=== PATIENT | female | born 1960 | race Caucasian/White ===

== ENCOUNTER 2017-08-25 13:02 | Observation (INO) | payer BC ==
[2017-08-25] MEDS ORDERED: Aspirin 81 mg CHEW TAB* 81 MG TAB.CHEW PO ONE (13:42)
[2017-08-25 14:09] LABS: ABS Basophils 0.1 10^3/ul (0-0.2); ABS Eosinophils 0.1 10^3/ul (0-0.6); ABS Lymphocytes 1.6 10^3/ul (1.0-4.8); ABS Monocytes 0.4 10^3/ul (0-0.8); ABS Neutrophils 3.8 10^3/ul (1.5-7.7); ABS Nucleated RBC 0 10^3/ul; Eosinophil % 2.3 % (0-6); Hematocrit 37 % (35-47); Hemoglobin 12.8 g/dl (12.0-16.0); Lymphocyte % 26.4 % (25-47); Mean Corpuscular HGB Conc 35 g/dl (31-36); Mean Corpuscular Hemoglobin 30 pg (27-31); Mean Corpuscular Volume 87 fL (80-97); Mean Platelet Volume 8.6 um3 (7.4-10.4); Nucleated Red Blood Cells % 0; Platelet Count 239 10^3/ul (150-450); Red Blood Count 4.23 10^6/ul (4.0-5.4); Red Cell Distribution Width 13 % (10.5-15); White Blood Count 6.1 10^3/ul (3.5-10.8)
[2017-08-25 14:20] LABS: INR 0.83 (0.77-1.02)
[2017-08-25 14:27] LABS: EGFR Non-African American 81.6 (>60)
--- NOTE | 2017-08-25 14:35 | RAD ---
HISTORY: Chest pain COMPARISONS: September 11, 2013 VIEWS: 1: frontal portable view of the chest at 1:55 PM FINDINGS: LINES AND TUBES: None. CARDIOMEDIASTINAL SILHOUETTE: The cardiomediastinal silhouette is normal for portable technique. PLEURA: The costophrenic angles are sharp. No pleural abnormalities are noted. LUNG PARENCHYMA: The lungs are clear. ABDOMEN: The upper abdomen is clear. There is no subphrenic gas. BONES AND SOFT TISSUES: The patient is status post anterior cervical fusion IMPRESSION: NO ACTIVE CARDIOPULMONARY DISEASE.
[2017-08-25] MEDS ORDERED: Nitroglycerin TAB 0.4 MG* 0.4 MG TAB SL ONE (15:08)
[2017-08-25] MEDS ORDERED: Metoclopramide IV* 5 MG/ML 2 ML VIAL IV ONE (15:08)
[2017-08-25] MEDS ORDERED: NS 0.9% 1000 ML* 1,000 ML IV ONE (15:08)
[2017-08-25] MEDS ORDERED: diPHENhydraMINE IV* 50 MG/ML 1 ml VIAL (BENADRYL) IV ONE (15:08)
[2017-08-25] MEDS: Atorvastatin* 80 MG TAB PO SCH (17:53)
[2017-08-25] MEDS: Metoprolol Tartrate TAB* 25 MG PO SCH (17:53)
--- NOTE | 2017-08-25 18:20 | ED ---
Kole Haynes Jennifer, scribed for Mike Salvador MD on 08/25/17 at 1507 . HPI Chest Pain - HPI Summary HPI Summary: The patient is a 57 year old female who presents with chest pain, dizziness, and nausea since 11:30 this morning. The patient reports her symptoms began with chest pain across her whole chest and under her right arm. She then began to feel numbness in her jaw, neck, and fingertips, but not her fingertips anymore. She additionally complains of headache and belching. The patient denies heart burn, coughing, and heart palpitations. She has a history of vertigo but denies ever having chest pressure with her vertigo in the past. - History of Current Complaint Chief Complaint: EDChestPainROMI Time Seen by Provider: 08/25/17 14:59 Hx Obtained From: Patient Onset/Duration: Started Hours Ago - 3.5 hours, Still Present Timing: Constant Initial Severity: Moderate Current Severity: Moderate Pain Intensity: 8 Pain Scale Used: 0-10 Numeric Chest Pain Location: Diffuse Chest Pain Radiates: Yes Chest Pain Radiates To:: Other - Right armpit Aggravating Factor(s): Nothing Alleviating Factor(s): Nothing Associated Signs and Symptoms: Positive: Other: - chest pain, numbness in jaw, neck and fingertips, dizziness, lightheadedness, nausea, headache, belching. NEGATIVE: heart burn, coughing, heart palpitations - Allergy/Home Medications Allergies/Adverse Reactions: Allergies Allergy/AdvReac Type Severity Reaction Status Date / Time Penicillins Allergy Intermediate Hives Verified 08/25/17 15:14 lactose Allergy Unknown Unknown Verified 08/25/17 15:00 Reaction Details sulfamethoxazole AdvReac Mild Diarrhea Verified 08/25/17 15:14 [From Bactrim] trimethoprim [From Bactrim] AdvReac Mild Diarrhea Verified 08/25/17 15:14 Home Medications: Home Medications Rosuvastatin (NF) [Crestor (NF)] 10 mg PO DAILY 08/25/17 [History Confirmed 07/10] PMH/Surg Hx/FS Hx/Imm Hx Cardiovascular History: Reports: Hx Hypercholesterolemia Denies: Hx Hypertension GI History: Reports: Other GI Disorders - Lactose Intolerance, Nutcracker Esophagus Neurological History: Reports: Other Neuro Impairments/Disorders - Hx Vertigo Infectious Disease History: No Infectious Disease History: Denies: Traveled Outside the [place] in Last 30 Days - Family History Known Family History: Positive: Cardiac Disease - Father - CHF, pacemaker; Mother - pacemaker, Diabetes Negative: Renal Disease - Social History Alcohol Use: None Hx Substance Use: No Substance Use Type: Reports: None Hx Tobacco Use: No Smoking Status (MU): Never Smoked Tobacco Review of Systems Positive: Chest Pain. Negative: Palpitations Negative: Cough Gastrointestinal: Negative - Heart burn Positive: Nausea, Other - Belching Neurological: Other - Dizziness, lightheaded Positive: Headache, Numbness - jaw, neck, fingertips All Other Systems Reviewed And Are Negative: Yes Physical Exam - Summary Physical Exam Summary: Appearance: Well appearing, no pain distress Skin: warm, dry, reflects adequate perfusion Head/face: normal Eyes: EOMI, ROSITA ENT: normal Neck: supple, non-tender Respiratory: CTA, breath sounds present Cardiovascular: RRR, pulses symmetrical Abdomen: non-tender, soft Bowel Sounds: present Musculoskeletal: normal, strength/ROM intact Neuro: Negative Hallpike, normal, sensory motor intact, A&Ox3 Triage Information Reviewed: Yes Vital Signs On Initial Exam: Initial Vitals Temp Pulse Resp BP Pulse Ox 98.1 F 87 14 151/80 99 08/25/17 13:05 08/25/17 13:05 08/25/17 13:05 08/25/17 13:05 08/25/17 13:05 Vital Signs Reviewed: Yes Diagnostics - Vital Signs Vital Signs Temp Pulse Resp BP Pulse Ox 08/25/17 13:05 98.1 F 87 14 151/80 99 - Laboratory Lab Results: Lab Results 08/25/17 08/25/17 08/25/17 Range/Units 13:59 13:59 13:59 WBC 6.1 (3.5-10.8) 10^3/ul RBC 4.23 (4.0-5.4) 10^6/ul Hgb 12.8 (12.0-16.0) g/dl Hct 37 (35-47) % MCV 87 (80-97) fL MCH 30 (27-31) pg MCHC 35 (31-36) g/dl RDW 13 (10.5-15) % Plt Count 239 (150-450) 10^3/ul MPV 8.6 (7.4-10.4) um3 Neut % (Auto) 63.3 (38-83) % Lymph % (Auto) 26.4 (25-47) % [place] % (Auto) 7.1 H (0-7) % Eos % (Auto) 2.3 (0-6) % Baso % (Auto) 0.9 (0-2) % Absolute Neuts (auto) 3.8 (1.5-7.7) 10^3/ul Absolute Lymphs (auto) 1.6 (1.0-4.8) 10^3/ul Absolute Monos (auto) 0.4 (0-0.8) 10^3/ul Absolute Eos (auto) 0.1 (0-0.6) 10^3/ul Absolute Basos (auto) 0.1 (0-0.2) 10^3/ul Absolute Nucleated RBC 0 10^3/ul Nucleated RBC % 0 INR (Anticoag Therapy) 0.83 (0.77-1.02) Sodium 139 (139-145) mmol/L Potassium 3.7 (3.5-5.0) mmol/L Chloride 105 (101-111) mmol/L Carbon Dioxide 26 (22-32) mmol/L Anion Gap 8 (2-11) mmol/L BUN 17 (6-24) mg/dL Creatinine 0.73 (0.51-0.95) mg/dL Est GFR ( Amer) 104.9 (>60) Est GFR (Non-Af Amer) 81.6 (>60) BUN/Creatinine Ratio 23.3 H (8-20) Glucose 102 H (70-100) mg/dL Lactic Acid (0.5-2.0) mmol/L Calcium 9.2 (8.6-10.3) mg/dL Total Bilirubin 0.50 (0.2-1.0) mg/dL AST 20 (13-39) U/L ALT 22 (7-52) U/L Alkaline Phosphatase 76 (34-104) U/L Troponin I 0.00 (<0.04) ng/mL B-Natriuretic Peptide ( - 100) pg/mL Total Protein 6.8 (6.4-8.9) g/dL Albumin 4.1 (3.2-5.2) g/dL Globulin 2.7 (2-4) g/dL Albumin/Globulin Ratio 1.5 (1-3) 08/25/17 08/25/17 Range/Units 13:59 13:59 WBC (3.5-10.8) 10^3/ul RBC (4.0-5.4) 10^6/ul Hgb (12.0-16.0) g/dl Hct (35-47) % MCV (80-97) fL MCH (27-31) pg MCHC (31-36) g/dl RDW (10.5-15) % Plt Count (150-450) 10^3/ul MPV (7.4-10.4) um3 Neut % (Auto) (38-83) % Lymph % (Auto) (25-47) % [place] % (Auto) (0-7) % Eos % (Auto) (0-6) % Baso % (Auto) (0-2) % Absolute Neuts (auto) (1.5-7.7) 10^3/ul Absolute Lymphs (auto) (1.0-4.8) 10^3/ul Absolute Monos (auto) (0-0.8) 10^3/ul Absolute Eos (auto) (0-0.6) 10^3/ul Absolute Basos (auto) (0-0.2) 10^3/ul Absolute Nucleated RBC 10^3/ul Nucleated RBC % INR (Anticoag Therapy) (0.77-1.02) Sodium (139-145) mmol/L Potassium (3.5-5.0) mmol/L Chloride (101-111) mmol/L Carbon Dioxide (22-32) mmol/L Anion Gap (2-11) mmol/L BUN (6-24) mg/dL Creatinine (0.51-0.95) mg/dL Est GFR ( Amer) (>60) Est GFR (Non-Af Amer) (>60) BUN/Creatinine Ratio (8-20) Glucose (70-100) mg/dL Lactic Acid 0.6 (0.5-2.0) mmol/L Calcium (8.6-10.3) mg/dL Total Bilirubin (0.2-1.0) mg/dL AST (13-39) U/L ALT (7-52) U/L Alkaline Phosphatase (34-104) U/L Troponin I (<0.04) ng/mL B-Natriuretic Peptide 10 ( - 100) pg/mL Total Protein (6.4-8.9) g/dL Albumin (3.2-5.2) g/dL Globulin (2-4) g/dL Albumin/Globulin Ratio (1-3) Result Diagrams: 08/25/17 13:59 08/25/17 13:59 Lab Statement: Any lab studies that have been ordered have been reviewed, and results considered in the medical decision making process. - Radiology CXR Xray Interpretation: No Acute Changes - NO ACTIVE CARDIOPULMONARY DISEASE. Dr. Salvador has reviewed this report. Radiology Interpretation Completed By: Radiologist - EKG 1303 Cardiac Rate: NL EKG Rhythm: Sinus Rhythm - 79 BPM Ectopy: PACs EKG Interpretation: Normal axis, normal ST Chest Pain Course/Dx - Course Course Of Treatment: Pain radiating to her neck. Initial EKG, troponin is nondiagnostic. Patient agrees to be admitted for further evaluation, treatment and testing. Heart score is 3. - Chest Pain Differential Diagnosis/HQI/PQRI: Acute RI, ACS, Angina, CHF, Chest Wall, GI Disease, Lower Respiratory Infection, Pulmonary Edema, Pulmonary Embolism - Diagnoses Provider Diagnoses: Chest pain, Acute coronary syndrome, Lightheadedness - Provider Notifications Discussed Care Of Patient With: Nj Jones Time Discussed With Above Provider: 15:17 Instructed by Provider To: Admit As Inpatient Discharge - Sign-Out/Discharge Documenting (check all that apply): Discharge/Admit/Transfer - Discharge Plan Condition: Good Disposition: ADMITTED TO [facility] - Billing Disposition and Condition Condition: GOOD Disposition: [facility] [place] The documentation as recorded by the Kole elena Jennifer accurately reflects the service I personally performed and the decisions made by Modesto govea Kirk, MD.
[2017-08-25] MEDS ORDERED: Meclizine TAB* 12.5 MG PO PRN (20:01)
--- NOTE | 2017-08-25 20:31 | HP ---
HISTORY AND PHYSICAL: DATE OF ADMISSION: 08/25/17 PRIMARY CARE PROVIDER: Yumiko Tompkins MD ADMITTING PROVIDER: Nj Jones MD CHIEF COMPLAINT: Chest pain, nausea, dizziness, numbness, tingling. HISTORY OF PRESENT ILLNESS: Faith Hampton is a 57-year-old female with past medical history of hyperlipidemia, former smoker, Nutcracker esophagus who was in her usual state of health, sitting at work, at 11:40 a.m. on day of admission , when she developed 8/10 pain underneath her left breast radiating through to her right axilla, lasting about 15 minutes. She has a difficult time describing the pain though states it is not burning or stabbing. It then resolved and she developed bilateral numbness and tingling in her fingers and then throughout the rest of her body. She began to feel dizzy, nauseous and developed numbness in her jaw. She has never experienced symptoms like this. These are not comparable to her previous experience with her Nutcracker esophagus spasms for which she gets occasionally dilated with Dr. Langston - the last 2 to 3 years ago. The patient does not exercise. She has a family history of her father had multiple cardiac issues including need for a pacemaker, consists of heart failure. The patient is a former smoker of 12-pack years, quit 20 years ago. She enjoys 1 to 2 beers nightly. She denies any shortness of breath. She has had episodes of dizziness 4 times over the last 6 months usually at around dinnertime, for which goes to sleep and it resolves. She of note also had a 2-1 /2-hour flight the day prior to presentation. Denies any swelling in her legs. A D-dimer was checked in the emergency room and was negative at less than 200. Her initial troponins are 0. Her initial EKG, normal sinus rhythm. No ischemic changes. She is being referred to hospitalist service for ACS rule out. PAST MEDICAL HISTORY: 1. Nutcracker esophagus. 2. Hyperlipidemia. 3. Occasional vertigo. MEDICATIONS: Crestor 10 mg daily. ALLERGIES: PENICILLIN gives hives, BACTRIM gives diarrhea. She has lactose intolerance. FAMILY HISTORY: Father at age 84 ultimately of complications of CHF and diabetes. Mother had hyperlipidemia, hypertension, also pacemaker. 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 She has 12-pack- year smoking history, quit 20 years ago. She drinks 1 to 2 beers daily. REVIEW OF SYSTEMS: Complete 14-point review of systems is negative, except as per HPI. PHYSICAL EXAMINATION GENERAL APPEARANCE: No acute distress, sitting on the hospital bed. VITAL SIGNS: Blood pressure 131/82, temperature 98.7, heart rate 74, respiratory rate 16, satting 99% on room air. HEENT: Normocephalic, atraumatic. Pupils are equal, round, and reactive to light. Extraocular motions are intact. No scleral icterus. NECK: Supple. No cervical lymphadenopathy. PULMONARY: Clear to auscultation bilaterally, with no wheezing, rales, or rhonchi. CARDIOVASCULAR: Regular rate and rhythm. No murmurs, rubs, or gallops. ABDOMEN: Soft, nontender, nondistended. EXTREMITIES: Warm, well perfused. NEURO: Clinical Nurse Manager strength intact 5/5. Cranial nerves grossly intact. LABORATORY DATA: White count 6.1, hemoglobin 12.8, hematocrit 37, platelets 239,000. INR 0.83. D-dimer less than 200. Sodium 139, potassium 3.7, chloride 105, BUN 17, creatinine 0.73, glucose 102. Lactic acid 0.6. AST 20, ALT 22, alk phos 76. Troponin 0.00. BNP 10. Albumin 4.1. IMAGING: Chest x-ray demonstrated no active cardiopulmonary disease. EKG demonstrated normal sinus rhythm, no ST elevations or depressions, normal axis, QTc 447. ASSESSMENT AND PLAN: Faith Hampton is a 57-year-old female with history of esophageal spasm/Nutcracker esophagus presenting with chest pain radiating to axilla, followed by nausea, jaw numbness. She is status post aspirin in the emergency room and currently chest pain free. She is being referred for acute coronary syndrome rule out. I am going to get a third troponin, put her on telemetry, give her a heart healthy diet, n.p.o. at midnight, stress test in the morning, and a lipid panel, A1c, give her metoprolol tartrate 25 mg q.6 hours and Lipitor 50 mg followed by aspirin 81 mg tomorrow. She is a full code. Medical surrogate is her , Helio Hampton. [id number]/[facility] #: [id number] [facility]
[2017-08-26] MEDS: Metoprolol Tartrate TAB* 25 MG PO SCH (02:51)
[2017-08-26] MEDS ORDERED: Aspirin 81 mg CHEW TAB* 81 MG TAB.CHEW PO SCH (09:00)
[2017-08-26] MEDS: Atorvastatin* 80 MG TAB PO SCH (09:07)
--- NOTE | 2017-08-26 14:04 | RAD ---
HISTORY: Chest pain, rule out acute coronary syndrome, hyperlipidemia COMPARISONS: None TECHNIQUE: A 1 day stress/rest myocardial perfusion study was performed, with exercise stress. The exercise portion was performed using the Elio protocol, for a total METs of 10.1. The stress portion was monitored by Dr. Thompson. Gated SPECT imaging was performed, with CT-based attenuation correction DOSE: Stress: Technetium 99m tetrofosmin, 25.9 millicuries, injected at 1:20 PM on August 26, 2017 Rest: Technetium 99m tetrofosmin, 10.2 millicuries, injected at 6:50 AM on August 26, 2017 Pharmacologic agent: None FINDINGS: CARDIAC MONITORING: Peak heart rate of 1 43 bpm, 89% of predicted. No EKG changes of ischemia with stress. EF: 76% TID: 0.9 MOTION: Normal motion, with normal wall thickening. PERFUSION: There is a small reversible perfusion defect of the anterior wall OTHER: None IMPRESSION: SMALL REVERSIBLE PERFUSION DEFECT OF THE ANTERIOR WALL, CONSISTENT WITH A SMALL AREA OF ISCHEMIA. ASSESSMENT: LOW RISK. Based on imaging criteria from ACC/AHA 2002. Guideline Update for the Management of Patient's with Chronic Stable Angina, table 23. Noninvasive Risk Stratification. CPT II Codes: 7628S5Q
--- NOTE | 2017-08-26 16:32 | CONSULT ---
Subjective Date of Service: 08/26/17 Interval History: Admission Date: 08/25/17 Consult date 08/26/2017 Provider: Hospitalist service PRIMARY CARE PROVIDER: Yumiko Tompkins MD CHIEF COMPLAINT: Chest pain, nausea, dizziness, numbness, tingling. Reason for consult: Stress test interpretation HISTORY OF PRESENT ILLNESS: Faith Hampton is a 57-year-old female with past medical history of hyperlipidemia , former smoker, esophageal spasm with prior dilations who was admitted yesterday with chest pain across the chest, body numbness and tingling, dizziness, nauseated, jaw numbness. She ruled out for ACS. She had normal exercise treadmill study. Her MPI I reviewed and was entirely normal. She is completely asymptomatic at this time. I advised her not to ignore future episodes of chest discomfort. PAST MEDICAL HISTORY: 1. esophageal spasm 2. Hyperlipidemia. 3. Occasional vertigo. MEDICATIONS: Crestor 10 mg daily. ALLERGIES: PENICILLIN gives hives, BACTRIM gives diarrhea. She has lactose intolerance. FAMILY HISTORY: Father at age 84 ultimately of complications of CHF and diabetes. Mother had hyperlipidemia, hypertension, also pacemaker. 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 She has 12-pack- year smoking history, quit 20 years ago. She drinks 1 to 2 beers daily. Medications Active Medications: Aspirin (Aspirin 81 Mg Chew Tab*) 81 mg PO DAILY [facility] Last Admin: 08/26/17 09:12 Dose: 81 mg Atorvastatin Calcium (Lipitor*) 80 mg PO DAILY [facility] Last Admin: 08/26/17 09:07 Dose: Not Given Meclizine HCl (Antivert Tab*) 25 mg PO Q8HR PRN PRN Reason: DIZZINESS Last Admin: 08/25/17 20:18 Dose: 25 mg Home Medications: Rosuvastatin (NF) [Crestor (NF)] 10 mg PO DAILY 08/25/17 [History Confirmed 07/10] Review of Systems - Measurements Intake and Output: Intake and Output Last 24 Hours 08/24/17 08/25/17 08/26/17 08/27/17 06:59 06:59 06:59 06:59 Intake Total 3150 220 Output Total 0 Balance 3150 220 Weight 157 lb 11.2 oz Intake: IV Fluids 2000 100 NS (0.9%) 1000 IVPB 1000 NS (0.9%) 1000 Oral 150 120 Output: Urine 0 Other: # Bowel Movements 0 # Voids 0 - Review of Systems Constitutional Symptoms: Negative: Weight Gain, Weight Loss, Weakness, Fatigue, Fever Dermatology: Negative: Rash, Skin Lesions HEENT: Negative: Change in Hearing, Vertigo Eyes: Negative: Change in Vision, Double Vision Thyroid: Negative: Goiter, Thyroid Nodule, Cold Intolerance, Heat Intolerance, Constipation, Palpitations, Weight Loss, Weight Gain Pulmonary: Negative: Cough, Sputum, Hemoptysis, Wheezing, Respiratory Distress, Shortness of Breath Cardiology: Positive: Chest Pain Negative: Shortness of Breath, Palpitations, Swelling of Ankles, Peripheral Vascular Dis, Edema, Syncope, Claudication, Paroxysmal Nocturnal Dyspnea, Orthopnea Gastroenterology: Negative: Blood in Stools, Change in Bowel Habits, Haematemesis, Melena Genital - Urinary: Negative: Dysuria, Hematuria, Polyuria Musculoskeletal: Negative: Joint Pain, Joint Stiffness, Osteoporosis Endocrinology: Negative: Diabetes, Hyperglycemia, Hypoglycemia, Hirsutism, Polydipsia, Polyuria Hematologic/Lymphatic: Negative: Anemia, Easy Brusing, Hx Leukemia, Hx Lymphoma Neurology: Negative: Diplopia, Dizziness, Change in Balancing, Change in Coordination, Change in Memory, Hx of Stroke\TIA, Hx Seizures Psychiatry: Negative: Depressed Mood, Adhedonia, Unusual Anxiety, Suicidal Ideation Allergic/Immunologic: Negative: Hx HIV, Immunocompromise Review of Systems Statement: All other review of systems negative, unless stated above. Objective Vital Signs: Temp Pulse Resp BP Pulse Ox 98.9 F 54 16 135/74 99 08/26/17 11:27 08/26/17 11:27 08/26/17 11:27 08/26/17 11:27 08/26/17 11:27 Oxygen Devices in Use Now: None Appearance: nad, pleasant Ears/Nose/Mouth/Throat: Clear Oropharnyx, Mucous Membranes Moist Neck: NL Appearance and Movements; NL JVP, Trachea Midline Respiratory: Symmetrical Chest Expansion and Respiratory Effort, Clear to Auscultation Cardiovascular: NL Sounds; No Murmurs; No JVD, RRR, No Edema Abdominal: NL Sounds; No Tenderness; No Distention Extremities: No Edema Skin: No Rash or Ulcers Neurological: Alert and Oriented x 3 Laboratory Results: 08/25/17 13:59 08/25/17 13:59 INR (Anticoag Therapy) 0.83 (0.77-1.02) 08/25/17 13:59 Total Bilirubin 0.50 mg/dL (0.2-1.0) 08/25/17 13:59 AST 20 U/L (13-39) 08/25/17 13:59 ALT 22 U/L (7-52) 08/25/17 13:59 Alkaline Phosphatase 76 U/L (34-104) 08/25/17 13:59 B-Natriuretic Peptide 10 pg/mL (-100) 08/25/17 13:59 Total Protein 6.8 g/dL (6.4-8.9) 08/25/17 13:59 Albumin 4.1 g/dL (3.2-5.2) 08/25/17 13:59 Globulin 2.7 g/dL (2-4) 08/25/17 13:59 Albumin/Globulin Ratio 1.5 (1-3) 08/25/17 13:59 Triglycerides 264 mg/dL 08/26/17 07:02 Cholesterol 181 mg/dL 08/26/17 07:02 LDL Cholesterol 86 mg/dL 08/26/17 07:02 HDL Cholesterol 42.2 mg/dL 08/26/17 07:02 08/25/17 08/25/17 08/25/17 13:59 16:39 19:32 Troponin I 0.00 0.00 0.00 hgba1c 5.4 d=dimer < 200 EKG Data: EKG 08/25/2017: Nsr, no ischemic ekg changes Assessment/Plan Faith's symptoms appear to be non-cardiac. Given her history I would strong consider a GI etiology. She should continue to undergo primary prevention evaluation and treatment through her PMD's office.
[2017-08-26 17:35] VITALS: BP 122/65
--- NOTE | 2017-08-27 23:58 | DS ---
CC: Dr. Yumiko Tompikns * DISCHARGE SUMMARY: DATE OF ADMISSION: 08/25/17 DATE OF DISCHARGE: 08/26/17 PRIMARY CARE PROVIDER: Dr. Yumiko Tompkins. MY ATTENDING WHILE IN THE HOSPITAL: Dr. France Bautista.* (DICTATED BY RAGHU ORTIZ) PRIMARY DISCHARGE DIAGNOSES: 1. Chest pain. 2. Dizziness. SECONDARY DISCHARGE DIAGNOSES: 1. Nutcracker esophagus. 2. Hyperlipidemia. 3. Vertigo. STUDIES DONE WHILE IN THE HOSPITAL: Chest x-ray from 08/25/17 read as no active cardiopulmonary disease. Electrocardiogram from 08/25/17 read as normal sinus rhythm. No ST-segment abnormalities. No hyperacute T-waves. Normal axis. Radius of 447. One PAC. QTc of 447. No other abnormalities, consistent with previous exam. Nuclear medicine scan from 08/26/17 read as small reversible perfusion defect of the anterior wall, consistent with small area of ischemia. Assessment: Low risk. MEDICATIONS AT DISCHARGE: 1. Rosuvastatin 10 mg p.o. daily. 2. Aspirin 81 mg p.o. daily. 3. Meclizine 25 mg p.o. q.8 hours as needed for vertigo. New medications at discharge: 1. Aspirin. 2. Meclizine. Medications discontinued at discharge: None. HOSPITAL COURSE: This is a brief summary of the patient's presentation, for more details please see the history and physical from Dr. Nj Jones on . In brief, the patient is a 57-year-old female with past medical history significant for the above, who presented with chest pain, nausea, dyspnea, and tingling, lasting about 15 minutes. Pain was 8/10, underneath her left breast, radiating to her right axilla. It was not burning or stabbing. She also, during this time, developed bilateral numbness and tingling into her fingers and throughout the rest of her body. She felt dizzy, nauseous, and developed numbness in her jaw. She never had symptoms like this with her nutcracker esophagus. She had had 4 episodes of vertigo over the last 6 months, which have all resolved without intervention. The patient recently flew back, had a long flight, negative D-dimer. The patient was admitted to the hospital for atypical chest pain. The patient had no events overnight. The patient's chest pain resolved. The patient had no dizziness. The patient had no persistent numbness. The patient had a cardiac nuclear medicine stress test as above. The patient's laboratory data showed a hemoglobin A1c of 5.4, troponin I of 0.00 x3, and LDL cholesterol of 86, cholesterol 181, HDL cholesterol of 42.2. No other significant abnormalities from laboratory data. The patient was seen in consultation by Dr. Los Thompson of cardiology due to slightly abnormal stress test that was read as low risk and he deemed this to not be a significant abnormality. He believed this to be gastroenterological pain and recommended she be discharged to follow up with her primary care provider for continued primary prevention of HI. PHYSICAL EXAMINATION ON THE DAY OF DISCHARGE: General: The patient is a 57- year- old female who appears stated age, sitting comfortably in bed, in no acute distress. HEENT: Head normocephalic, atraumatic. Sclerae are anicteric. No conjunctival injection. Nasal mucosa moist. Oral mucosa moist. No pharyngeal erythema, discharge or exudate. Neck: Supple, nontender. No lymphadenopathy. No carotid bruit auscultated. No JVD. Cardiac: Regular rate and rhythm. No clicks, murmurs, gallops or rubs. Pulses are 2+ in bilateral dorsal pedis, posterior tibialis, and radial areas. Respiratory: Clear to auscultation bilaterally. No wheezes, rales or rhonchi. Good air exchange bilaterally. Abdomen: Soft, nontender, nondistended. Bowels sounds present, normoactive in all 4 quadrants. No hepatospleno-megaly. No abdominal bruits auscultated. Skin: Clean, dry, and intact. No rash. Genitourinary: No suprapubic or CVA tenderness. Neuro: Cranial nerves II through XII grossly intact. No nystagmus. No difficulty with cerebellar testing. No abnormal gait. Alert and oriented x3. Psychiatric: Pleasant and cooperative. DISCHARGE PLAN: The patient will be discharged to home, to follow up with primary care provider to help determine the etiology of her chest pain and numbness. The patient will have meclizine available for vertigo if she needs it. She states that this worked very well for vertigo that she experienced while in the emergency department. The patient should return to hospital for chest pain, shortness of breath or other alarming symptoms. She should follow up with the back tufter, Dr. Bryant Langston, as scheduled for evaluation of her nutcracker esophagus, whether he believes this could be the origin of her pain. The patient should engage in activity as tolerated and have a heart healthy diet without caffeine. TIME SPENT: Approximately 60 minutes were spent on this discharge, 30 of which was spent in [id number] with the patient obtaining history and physical and discussing treatment plan. RAGHU ORTIZ [id number] #: [id number] EMILIO
== END 2017-08-26 18:15 | disposition home or self-care (01) ==
LOC: ED 13:02 → MEDTELE 15:33
PROVIDERS: ADMIT Internal Medicine; ATTEND Internal Medicine
DX: R07.9 Chest pain, unspecified (principal); R42 Dizziness and giddiness; K22.4 Dyskinesia of esophagus; E78.5 Hyperlipidemia, unspecified; Z79.899 Other long term (current) drug therapy; Z87.891 Personal history of nicotine dependence; Z88.2 Allergy status to sulfonamides; Z88.8 Allergy status to other drugs, medicaments and biological substances; I49.1 Atrial premature depolarization
CPT/HCPCS: 36415; 71045; 78452; 80053; 80061; 83036; 83605; 83880; 84484; 85025; 85379; 85610; 93005; 93017; 96374; 96375; 99284; A9270-GY; A9502; G0378; J1200; J2765